=== PATIENT | male | born 1940 | race Hispanic/Latino ===

== ENCOUNTER 2017-04-19 13:32 | Inpatient (IN) | payer MEDICARE ==
--- NOTE | 2017-04-19 14:10 | XRay Report ---
Single view chest: History: Difficulty breathing. Findings: Borderline cardiomegaly. Trachea is midline. Mild pulmonary venous congestion is suspected faint interstitial infiltrates. Normal CP angles. Impression: Probable early CHF.
[2017-04-19 14:15] LABS: Hematocrit 24.8 % (35.5-45.6); Hemoglobin 8.3 gm/dl (11.8-15.2); Mean Corpuscular HGB Conc 33 % (32-34); Mean Corpuscular Hemoglobin 33 pg (28-32); Mean Corpuscular Volume 100 fl (84-94); Red Blood Count 2.48 M/mm3 (3.65-5.03); Red Cell Distribution Width 15.8 % (13.2-15.2)
[2017-04-19 14:18] LABS: White Blood Count 23.2 K/mm3 (4.5-11.0)
[2017-04-19 14:25] LABS: INR 1.56 (0.87-1.13)
[2017-04-19 14:26] LABS: Partial Thromboplastin Time 36.5 Sec. (24.2-36.6)
--- NOTE | 2017-04-19 14:26 | Cat Scan Report ---
CT scan of head without IV contrast: History: Stroke. Findings: Ventricles are normal in size and midline in location. Chronic lacunar infarct right and left basal ganglia. No evidence of acute ischemia, hemorrhage or mass. No extra-axial fluid collection. Normal brainstem and cerebellum. Mucosal thickening in the right maxillary sinus. Impression: No acute intracranial abnormality. Sinus disease.
[2017-04-19 14:37] LABS: Creatine Kinase MB 16.4 ng/mL (0.0-4.0)
[2017-04-19 14:38] LABS: Albumin 3.1 g/dL (3.9-5); Albumin/Globulin Ratio 0.9 %; Bilirubin,Direct 0.4 mg/dL (0-0.2); Bilirubin,Indirect 0.4 mg/dL; Bilirubin,Total 0.8 mg/dL (0.1-1.2); Calcium 7.6 mg/dL (8.4-10.2); Chloride 100.6 mmol/L (98-107); Potassium 4.3 mmol/L (3.6-5.0); Total Protein 6.4 g/dL (6.3-8.2)
[2017-04-19 14:51] LABS: Basophils % (Manual) 0 % (0.0-1.8)
[2017-04-19 14:53] LABS: Anisocytosis 1+; Elliptocytes Few; Microcytosis Few; Ovalocytes 1+; Tear Drop Cells Few
[2017-04-19 14:54] LABS: Burr Cells Few; Diff Status Complete; Platelet Estimate Appears Decreased; Polychromasia Rare
[2017-04-19 14:55] LABS: Platelet Count 23 K/mm3 (140-440)
--- NOTE | 2017-04-19 14:57 | XRay Report ---
Pelvis single view: History: Pelvic pain. Findings: No lytic or blastic lesions are noted. No fracture. No soft tissue calcification. Impression: Essentially negative pelvis.
--- NOTE | 2017-04-19 16:50 | Emergency Department Report ---
ED General Adult HPI - General Chief complaint: Altered Mental Status Stated complaint: POSSIBLE CVA Time Seen by Provider: 04/19/17 13:40 Source: EMS Mode of arrival: Stretcher Limitations: No Limitations - History of Present Illness Initial comments: The patient was transferred to this facility via EMS as a possible stroke syndrome. However the medics stated that his [place] score was negative and they had no recent to presume that the patient had a stroke. Apparently the patient passed out in his residence. The family found him in some degree of distress and called EMS. On the patient's arrival he did not complain of headache or pain anywhere else. He was noted to be a bit tachypnea. He did not complain of focal weakness or numbness. He had no specific neurological symptoms. He could tell me that he has been feeling weak in general and that he passed out in the early a.m. hours. I think he was found by his family in an altered condition. However he was oriented and lucid on his arrival. Medics reported a normal sugar and pulse oximetry was in the high 90s although they stated they found the patient on supplemental oxygen applied by fire department. -: This morning Severity scale (0 -10): 0 Improves with: none Worsens with: none Associated Symptoms: denies other symptoms - Related Data Home Medications Medication Instructions Recorded Confirmed Last Taken Simvastatin 20 mg PO DAILY 11/20/13 12/11/13 Unknown Previous Rx's Medication Instructions Recorded Last Taken Type Aspirin EC [Aspirin Enteric Coated 81 mg PO QDAY #30 tablet 12/09/13 Unknown Rx TAB] Clopidogrel [Plavix] 75 mg PO QDAY #30 tablet 12/09/13 Unknown Rx Lansoprazole Solutab [Prevacid 30 mg PO QDAY #30 tab 12/09/13 Unknown Rx Solutab] amLODIPine [Norvasc] 5 mg PO DAILY #30 tab 12/09/13 Unknown Rx glipiZIDE [glipiZIDE XL] 2.5 mg PO DAILY #30 tab.er.24 12/09/13 Unknown Rx Acetaminophen [Acetaminophen TAB] 650 mg PO Q4H PRN #30 tablet 12/20/13 Unknown Rx Albuterol *Only Ed* [Proventil 2.5 mg IH TIDRT 14 Days nebu 12/20/13 Unknown Rx 0.5% NEBS] Aspirin [Aspirin BABY CHEW TAB] 81 mg PO QDAY #30 tab.chew 12/20/13 Unknown Rx Azithromycin [Zithromax TAB] 500 mg PO QDAY #1 tablet 12/20/13 Unknown Rx Bisacodyl [Dulcolax suppos] 10 mg NJ QDAY PRN 30 Days 12/20/13 Unknown Rx supp.rect Dextrose 50% in Water [D50W (25GM) 50 ml IV PRN PRN 30 Days syringe 12/20/13 Unknown Rx Syringe] Docusate Sodium [Colace ORAL LIQ] 100 mg FEEDTUBE BID #60 oral.liqd 12/20/13 Unknown Rx Enoxaparin [Lovenox] 30 mg SUB-Q QDAY #14 syringe 12/20/13 Unknown Rx Haloperidol [Haldol] 0.5 mg PO Q6H PRN #30 tablet 12/20/13 Unknown Rx Lipase/Protease/Amylase [Pancreaze 1 each FEEDTUBE PRN PRN #30 capsule 12/20/[address],500 Unit] Metoprolol [Lopressor TAB] 25 mg PO BID #60 tablet 12/20/13 Unknown Rx Simple Syrup 15 ml FEEDTUBE PRN PRN 7 Days udc 12/20/13 Unknown Rx Sodium Bicarbonate 325 mg FEEDTUBE PRN PRN #30 tablet 12/20/13 Unknown Rx Allergies Allergy/AdvReac Type Severity Reaction Status Date / Time No Known Allergies Allergy Verified 11/20/13 21:16 ED Review of Systems ROS: Stated complaint: POSSIBLE CVA Other details as noted in HPI Constitutional: weakness. denies: chills, fever Eyes: denies: eye pain, eye discharge, vision change ENT: denies: ear pain, throat pain Respiratory: other (patient appears to be tachypneic but not specifically complaining of shortness of breath.). denies: cough, wheezing Cardiovascular: syncope. denies: chest pain, palpitations Endocrine: no symptoms reported Gastrointestinal: denies: abdominal pain, nausea, diarrhea Genitourinary: denies: urgency, dysuria Musculoskeletal: other (denies injury states fell out of bed). 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 He has had no recurrence. This lady was admitted to the [facility] for pneumonia and apparently had a chest tube I presume for a pleural effusion or empyema in January. He has not seen a doctor suddenly after that illness. - Surgical History Past Surgical History?: Yes Additional Surgical History: Removed left kidney 1994 - Social History Smoking Status: Former Smoker Substance Use Type: None - Medications Home Medications: Home Medications Medication Instructions Recorded Confirmed Last Taken Type Simvastatin 20 mg PO DAILY 11/20/13 12/11/13 Unknown History Aspirin EC [Aspirin Enteric Coated 81 mg PO QDAY #30 tablet 12/09/13 12/11/13 Unknown Rx TAB] Clopidogrel [Plavix] 75 mg PO QDAY #30 tablet 12/09/13 12/11/13 Unknown Rx Lansoprazole Solutab [Prevacid 30 mg PO QDAY #30 tab 12/09/13 12/11/13 Unknown Rx Solutab] amLODIPine [Norvasc] 5 mg PO DAILY #30 tab 12/09/13 12/11/13 Unknown Rx glipiZIDE [glipiZIDE XL] 2.5 mg PO DAILY #30 tab.er.24 12/09/13 12/11/13 Unknown Rx Acetaminophen [Acetaminophen TAB] 650 mg PO Q4H PRN #30 tablet 12/20/13 Unknown Rx Albuterol *Only Ed* [Proventil 2.5 mg IH TIDRT 14 Days nebu 12/20/13 Unknown Rx 0.5% NEBS] Aspirin [Aspirin BABY CHEW TAB] 81 mg PO QDAY #30 tab.chew 12/20/13 Unknown Rx Azithromycin [Zithromax TAB] 500 mg PO QDAY #1 tablet 12/20/13 Unknown Rx Bisacodyl [Dulcolax suppos] 10 mg NJ QDAY PRN 30 Days 12/20/13 Unknown Rx supp.rect Dextrose 50% in Water [D50W (25GM) 50 ml IV PRN PRN 30 Days syringe 12/20/13 Unknown Rx Syringe] Docusate Sodium [Colace ORAL LIQ] 100 mg FEEDTUBE BID #60 oral.liqd 12/20/13 Unknown Rx Enoxaparin [Lovenox] 30 mg SUB-Q QDAY #14 syringe 12/20/13 Unknown Rx Haloperidol [Haldol] 0.5 mg PO Q6H PRN #30 tablet 12/20/13 Unknown Rx Lipase/Protease/Amylase [Pancreaze 1 each FEEDTUBE PRN PRN #30 capsule 12/20/[address],500 Unit] Metoprolol [Lopressor TAB] 25 mg PO BID #60 tablet 12/20/13 Unknown Rx Simple Syrup 15 ml FEEDTUBE PRN PRN 7 Days udc 12/20/13 Unknown Rx Sodium Bicarbonate 325 mg FEEDTUBE PRN PRN #30 tablet 12/20/13 Unknown Rx ED Physical Exam - General Limitations: No Limitations General appearance: alert, in no apparent distress, other - Head Head exam: Present: atraumatic, normocephalic - Eye Eye exam: Present: normal appearance, PERRL, EOMI. Absent: scleral icterus ( tachypnea) - ENT ENT exam: Present: normal exam, mucous membranes moist - Neck Neck exam: Present: normal inspection - Respiratory Respiratory exam: Present: normal lung sounds bilaterally. Absent: respiratory distress - Cardiovascular Cardiovascular Exam: Present: regular rate, normal rhythm. Absent: systolic murmur, diastolic murmur, rubs, gallop - GI/Abdominal GI/Abdominal exam: Present: soft, normal bowel sounds. Absent: distended, tenderness, guarding, rebound, rigid - Rectal Rectal exam: Present: deferred - Extremities Exam Extremities exam: Present: normal inspection - Back Exam Back exam: Present: normal inspection - Neurological Exam Neurological exam: Present: alert, oriented X3, CN II-XII intact. Absent: motor sensory deficit (no acute focal deficit) - Psychiatric Psychiatric exam: Present: normal affect, normal mood - Skin Skin exam: Present: warm, dry, intact, normal color. Absent: rash ED Course Vital Signs 04/19/17 04/19/17 13:37 13:50 Temperature 98.8 F Pulse Rate 63 60 Respiratory 22 24 Rate Blood Pressure 126/68 O2 Sat by Pulse 99 95 Oximetry - Reevaluation(s) Reevaluation #1: She remained with tachypnea. However his vital signs were otherwise stable. Oximetry remained over 98%. He was treated with empiric antibiotics. He was treated with a measured amount of IV fluid. I do believe he has a cardiomyopathy and maybe early CHF. I do not want to volume overload him. Sepsis was a consideration. However the patient's picture was not well correlating. He does not have a tachycardia or a fever. His blood pressure is well maintained. This thrombocytopenia is very disproportionate to his leukocytosis. And indeed his leukocytosis is a lymphocytosis. 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 His platelet count was dangerously low. We do not know how its trending. Therefore I have ordered a platelet pheresis. In addition this patient's lactic acid level is normal. I have not seen evidence of a source infection. The patient does have an extremely elevated d-dimer. However this is nonspecific. We will pursue the possibility of pulmonary embolism with a VQ scan. That has been ordered. I discussed the case with Dr. Reis a flight operations inspector. I have asked the lab to send a flow cytometry test. Dr. Maharaj the hospitalist is admitting this patient. 19:03 Reevaluation #2: Patient does appear to have some degree of CHF and cardiomyopathy. I'm going to give him some Lasix. I do not believe the patient is septic. 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 Further care per the hospitalist and consultants. Patient is admitted in stable condition.. 04/19/17 19:13 ED Medical Decision Making - Lab Data Result diagrams: 04/19/17 13:55 04/19/17 13:55 Laboratory Results - last 24 hr 04/19/17 04/19/17 04/19/17 13:39 13:55 13:55 WBC 23.2 H RBC 2.48 L Hgb 8.3 L Hct 24.8 L MCV 100 H MCH 33 H MCHC 33 RDW 15.8 H Plt Count 23 L Lymph % (Auto) [place] Lymph # [place] Add Manual Diff Complete Total Counted 100 Seg Neutrophils % [place] Seg Neuts % (Manual) 5.0 L Band Neutrophils % 2.0 Lymphocytes % (Manual) 74.0 H Reactive Lymphs % (Man) 2.0 Monocytes % (Manual) 0 Eosinophils % (Manual) 1.0 Basophils % (Manual) 0 Metamyelocytes % 0 Myelocytes % 1.0 Promyelocytes % 7.0 Blast Cells % 8.0 Nucleated RBC % 1.0 H Seg Neutrophils # Man 1.2 L Band Neutrophils # 0.5 Lymphocytes # (Manual) 17.2 H Abs React Lymphs (Man) 0.5 Monocytes # (Manual) 0.0 Eosinophils # (Manual) 0.2 Basophils # (Manual) 0.0 Metamyelocytes # 0.0 Myelocytes # 0.2 Promyelocytes # 1.6 Blast Cells # 0.6 WBC Morphology Not Reportable Hypersegmented Neuts Not Reportable Hyposegmented Neuts Not Reportable Hypogranular Neuts Not Reportable Smudge Cells Not Reportable Toxic Granulation Not Reportable Toxic Vacuolation Not Reportable Dohle Bodies Not Reportable Pelger-Huet Anomaly Not Reportable Ivan Rods Not Reportable Platelet Estimate Appears decreased Clumped Platelets Not Reportable Plt Clumps, EDTA Not Reportable Large Platelets Not Reportable Giant Platelets Not Reportable Platelet Satelliting Not Reportable Plt Morphology Comment Not Reportable RBC Morphology Not Reportable Dimorphic RBCs Not Reportable Polychromasia Rare Hypochromasia Not Reportable Poikilocytosis Not Reportable Anisocytosis 1+ Microcytosis Few Macrocytosis Not Reportable Spherocytes Not Reportable Pappenheimer Bodies Not Reportable Sickle Cells Not Reportable Target Cells Not Reportable Tear Drop Cells Few Ovalocytes 1+ Helmet Cells Not Reportable [place] Bodies Not Reportable [place] Rings Not Reportable [place] Cells Few Bite Cells Not Reportable Crenated Cell Not Reportable Elliptocytes Few Acanthocytes (Spur) Not Reportable Rouleaux Not Reportable Hemoglobin C Crystals Not Reportable Schistocytes Not Reportable Malaria parasites Not Reportable Farhan Bodies Not Reportable Hem Pathologist Commnt Sent to pathology PT 19.6 H INR 1.56 H APTT 36.5 Thrombin Time 19.8 H D-Dimer > 75771 H Sodium Potassium Chloride Carbon Dioxide Anion Gap BUN Creatinine Estimated GFR BUN/Creatinine Ratio Glucose POC Glucose 126 H Lactic Acid Calcium Total Bilirubin Direct Bilirubin Indirect Bilirubin AST ALT Alkaline Phosphatase Total Creatine Kinase CK-MB (CK-2) CK-MB (CK-2) Rel Index Troponin T NT-Pro-B Natriuret Pep Total Protein Albumin Albumin/Globulin Ratio Triglycerides Cholesterol LDL Cholesterol Direct HDL Cholesterol Cholesterol/HDL Ratio Blood Type Antibody Screen 04/19/17 04/19/17 04/19/17 13:55 13:55 13:55 WBC RBC Hgb Hct MCV MCH MCHC RDW Plt Count Lymph % (Auto) Lymph # Add Manual Diff Total Counted Seg Neutrophils % Seg Neuts % (Manual) Band Neutrophils % Lymphocytes % (Manual) Reactive Lymphs % (Man) Monocytes % (Manual) Eosinophils % (Manual) Basophils % (Manual) Metamyelocytes % Myelocytes % Promyelocytes % Blast Cells % Nucleated RBC % Seg Neutrophils # Man Band Neutrophils # Lymphocytes # (Manual) Abs React Lymphs (Man) Monocytes # (Manual) Eosinophils # (Manual) Basophils # (Manual) Metamyelocytes # Myelocytes # Promyelocytes # Blast Cells # WBC Morphology Hypersegmented Neuts Hyposegmented Neuts Hypogranular Neuts Smudge Cells Toxic Granulation Toxic Vacuolation Dohle Bodies Pelger-Huet Anomaly Ivan Rods Platelet Estimate Clumped Platelets Plt Clumps, EDTA Large Platelets Giant Platelets Platelet Satelliting Plt Morphology Comment RBC Morphology Dimorphic RBCs Polychromasia Hypochromasia Poikilocytosis Anisocytosis Microcytosis Macrocytosis Spherocytes Pappenheimer Bodies Sickle Cells Target Cells Tear Drop Cells Ovalocytes Helmet Cells [place] Bodies [place] Rings Raquel Cells Bite Cells Crenated Cell Elliptocytes Acanthocytes (Spur) Rouleaux Hemoglobin C Crystals Schistocytes Malaria parasites Farhan Bodies Hem Pathologist Commnt PT INR APTT Thrombin Time D-Dimer Sodium 138 Potassium 4.3 Chloride 100.6 Carbon Dioxide 19 L Anion Gap 23 BUN 31 H Creatinine 1.4 Estimated GFR 49 BUN/Creatinine Ratio 22 Glucose 128 H POC Glucose Lactic Acid Calcium 7.6 L Total Bilirubin 0.80 Direct Bilirubin 0.4 H Indirect Bilirubin 0.4 AST 88 H ALT 45 Alkaline Phosphatase 332 H Total Creatine Kinase 801 H CK-MB (CK-2) 16.4 H CK-MB (CK-2) Rel Index 2.0 Troponin T 0.149 H* NT-Pro-B Natriuret Pep 3931 H Total Protein 6.4 Albumin 3.1 L Albumin/Globulin Ratio 0.9 Triglycerides 143 Cholesterol 77 LDL Cholesterol Direct 36 L HDL Cholesterol 13 L Cholesterol/HDL Ratio 5.92 Blood Type A POSITIVE Antibody Screen Negative 04/19/17 14:39 WBC RBC Hgb Hct MCV MCH MCHC RDW Plt Count Lymph % (Auto) Lymph # Add Manual Diff Total Counted Seg Neutrophils % Seg Neuts % (Manual) Band Neutrophils % Lymphocytes % (Manual) Reactive Lymphs % (Man) Monocytes % (Manual) Eosinophils % (Manual) Basophils % (Manual) Metamyelocytes % Myelocytes % Promyelocytes % Blast Cells % Nucleated RBC % Seg Neutrophils # Man Band Neutrophils # Lymphocytes # (Manual) Abs React Lymphs (Man) Monocytes # (Manual) Eosinophils # (Manual) Basophils # (Manual) Metamyelocytes # Myelocytes # Promyelocytes # Blast Cells # WBC Morphology Hypersegmented Neuts Hyposegmented Neuts Hypogranular Neuts Smudge Cells Toxic Granulation Toxic Vacuolation Dohle Bodies Pelger-Huet Anomaly Ivan Rods Platelet Estimate Clumped Platelets Plt Clumps, EDTA Large Platelets Giant Platelets Platelet Satelliting Plt Morphology Comment RBC Morphology Dimorphic RBCs Polychromasia Hypochromasia Poikilocytosis Anisocytosis Microcytosis Macrocytosis Spherocytes Pappenheimer Bodies Sickle Cells Target Cells Tear Drop Cells Ovalocytes Helmet Cells [place] Bodies [place] Rings [place] Cells Bite Cells Crenated Cell Elliptocytes Acanthocytes (Spur) Rouleaux Hemoglobin C Crystals Schistocytes Malaria parasites Farhan Bodies Hem Pathologist Commnt PT INR APTT Thrombin Time D-Dimer Sodium Potassium Chloride Carbon Dioxide Anion Gap BUN Creatinine Estimated GFR BUN/Creatinine Ratio Glucose POC Glucose Lactic Acid 1.20 Calcium Total Bilirubin Direct Bilirubin Indirect Bilirubin AST ALT Alkaline Phosphatase Total Creatine Kinase CK-MB (CK-2) CK-MB (CK-2) Rel Index Troponin T NT-Pro-B Natriuret Pep Total Protein Albumin Albumin/Globulin Ratio Triglycerides Cholesterol LDL Cholesterol Direct HDL Cholesterol Cholesterol/HDL Ratio Blood Type Antibody Screen - EKG Data -: EKG Interpreted by Me EKG shows normal: sinus rhythm Rate: normal - EKG Data Interpretation: nonspecific ST-T wave [facility] EKG was interpreted there is a lot of motion artifact but no evidence of STEMI or acute ischemia 04/19/17 19:11 - Radiology Data interpreted by me: Cardiomegaly and perhaps early CHF. Critical Care Time: Yes Critical care time in (mins) excluding proc time.: 60 Critical care attestation.: If time is entered above; I have spent that time in minutes in the direct care of this critically ill patient, excluding procedure time. ED Disposition Clinical Impression: Lymphoproliferative disorder, Thrombocytopenia, Lymphocytosis, Elevated troponin, Elevated d-dimer Anemia Qualifiers: Anemia type: unspecified type Qualified Code(s): D64.9 - Anemia, unspecified CHF (congestive heart failure) Qualifiers: Congestive heart failure type: unspecified congestive heart failure type Congestive heart failure chronicity: acute Qualified Code(s): I50.9 - Heart failure, unspecified Cardiomyopathy Qualifiers: Cardiomyopathy type: unspecified Qualified Code(s): I42.9 - Cardiomyopathy, unspecified Neutropenia Qualifiers: Neutropenia type: unspecified Qualified Code(s): D70.9 - Neutropenia, unspecified Disposition: DC09 OP ADMIT IP TO THIS HOSP Is pt being admited?: Yes Does the pt Need Aspirin: No (contraindicated due to thrombocytopenia) Condition: Stable Referrals: KORINA RIVER MD [Primary Care Provider] - 3-5 Days
[2017-04-19] MEDS ORDERED: VANCOMYCIN PHARMACY TO DOSE IV SCH ×2 (17:00→23:00)
[2017-04-19 17:31] LABS: Bilirubin,Urine NEG (Negative); Blood,Urine LG (Negative); Ketones,Urine 20 mg/dL (Negative); Leukocyte Esterase,Urine NEG (Negative); Mucus,Urine FEW /HPF; Nitrite,Urine NEG (Negative); Protein,Urine <15 mg/dL mg/dL (Negative); Urobilinogen,Urine < 2.0 mg/dL (<2.0)
[2017-04-19] MEDS ORDERED: NACL 0.9% 1000 ML 1,000 ML IV ONE (17:43)
[2017-04-19] MEDS ORDERED: NACL 0.9% 500 ML 500 ML IV ONE (17:51)
[2017-04-19] MEDS ORDERED: ZOSYN/NS 4.5GM/100ML 4.5 GM/100 ML VIAL IV ONE (18:00)
[2017-04-19] MEDS ORDERED: LASIX IV ONE (19:13)
[2017-04-19] MEDS: VANCOMYCIN/NS 1 GM/250 ML 1 GM/250 ML BAG IV SCH (20:36)
--- NOTE | 2017-04-19 21:11 | Nuclear Medicine Report ---
FINAL REPORT EXAM: NM LUNG SCAN PERF/VENT HISTORY: dimer syncope TECHNIQUE: Patient inhaled 15 millicurie xenon 133 and images were obtained per protocol. Patient was injected with 5 millicurie technetium 99 M maa and images were performed. Chest x-ray performed same day. FINDINGS: Ventilation imaging is normal. Perfusion images demonstrate a possible fissure sign on the RPO image. Chest x-ray demonstrates pulmonary interstitial infiltrates with nodularity suggestive of mild interstitial edema. IMPRESSION: By the PIOPED criteria, low probability for pulmonary thromboembolus. Chest x-ray findings are suggestive of mild interstitial edema.
[2017-04-19] MEDS ORDERED: PERCOCET 5/325 PO PRN (21:43)
--- NOTE | 2017-04-19 22:31 | History and Physical Report ---
History of Present Illness Date of examination: 04/19/17 Date of admission: 04/19/17 19:24 Chief complaint: Cc Passed out this AM History of present illness: [place] 76 y/o Male brought in for apparent passing out in AM.Also confusion.No fever/chills.No chest pain.No Sob.Patient has multiple medical problems including Htn CAD T2dm and Gerd. No malignancies except renal cell carcinoma for which he had L Nephrectomy Past Medical History Hx Hypertension: Yes Hx CVA: Yes Hx Congestive Heart Failure: (CAD) Hx Diabetes: Yes Hx Renal Disease: Yes (HX OF CA KIDNEY; TAKEN OFF. PT HAS ONLY RT KIDNEY) Additional medical history: Family states the patient had a nephrectomy for renal cancer. He has had no recurrence. Was admitted to the [facility] for pneumonia and apparently had a chest tube presumably for a pleural effusion or empyema in January. He has not seen a doctor recently after that illness. -Surgical History Past Surgical History?: Yes Additional Surgical History: Removed left kidney 1994 Social History Smoking Status: Former Smoker Substance Use Type: None -Medications Home Medications: Home Medications Medication Instructions Recorded Confirmed Last Taken Type Simvastatin 20 mg PO DAILY 11/20/13 12/11/13 Unknown History Aspirin EC [Aspirin Enteric Coated 81 mg PO QDAY #30 tablet 12/09/13 12/11/13 Unknown Rx TAB] Clopidogrel [Plavix] 75 mg PO QDAY #30 tablet 12/09/13 12/11/13 Unknown Rx Lansoprazole Solutab [Prevacid 30 mg PO QDAY #30 tab 12/09/13 12/11/13 Unknown Rx Solutab] amLODIPine [Norvasc] 5 mg PO DAILY #30 tab 12/09/13 12/11/13 Unknown Rx glipiZIDE [glipiZIDE XL] 2.5 mg PO DAILY #30 tab.er.24 12/09/13 12/11/13 Unknown Rx Acetaminophen [Acetaminophen TAB] 650 mg PO Q4H PRN #30 tablet 12/20/13 Unknown Rx Albuterol *Only Ed* [Proventil 2.5 mg IH TIDRT 14 Days nebu 12/20/13 Unknown Rx 0.5% NEBS] Aspirin [Aspirin BABY CHEW TAB] 81 mg PO QDAY #30 tab.chew 12/20/13 Unknown Rx Azithromycin [Zithromax TAB] 500 mg PO QDAY #1 tablet 12/20/13 Unknown Rx Bisacodyl [Dulcolax suppos] 10 mg LA QDAY PRN 30 Days 12/20/13 Unknown Rx supp.rect Dextrose 50% in Water [D50W (25GM) 50 ml IV PRN PRN 30 Days syringe 12/20/13 Unknown Rx Syringe] Docusate Sodium [Colace ORAL LIQ] 100 mg FEEDTUBE BID #60 oral.liqd 12/20/13 Unknown Rx Enoxaparin [Lovenox] 30 mg SUB-Q QDAY #14 syringe 12/20/13 Unknown Rx Haloperidol [Haldol] 0.5 mg PO Q6H PRN #30 tablet 12/20/13 Unknown Rx Lipase/Protease/Amylase [Pancreaze 1 each FEEDTUBE PRN PRN #30 capsule 12/20/[address],500 Unit] Metoprolol [Lopressor TAB] 25 mg PO BID #60 tablet 12/20/13 Unknown Rx Simple Syrup 15 ml FEEDTUBE PRN PRN 7 Days udc 12/20/13 Unknown Rx Sodium Bicarbonate 325 mg FEEDTUBE PRN PRN #30 tablet 12/20/13 Unknown Rx Review of Systems Stated complaint: POSSIBLE CVA Other details as noted in HPI Constitutional: weakness. denies: chills, fever Eyes: denies: eye pain, eye discharge, vision change ENT: denies: ear pain, throat pain Respiratory: other (patient appears to be tachypneic but not specifically complaining of shortness of breath.). denies: cough, wheezing Cardiovascular: syncope. denies: chest pain, palpitations Endocrine: no symptoms reported Gastrointestinal: denies: abdominal pain, nausea, diarrhea Genitourinary: denies: urgency, dysuria Musculoskeletal: other (denies injury states fell out of bed). denies: back pain, joint swelling, arthralgia Skin: denies: rash, lesions Neurological: denies: headache, weakness, paresthesias Psychiatric: denies: anxiety, depression Hematological/Lymphatic: denies: easy bleeding, easy bruising Medications and Allergies Allergies Allergy/AdvReac Type Severity Reaction Status Date / Time No Known Allergies Allergy Verified 11/20/13 21:16 Home Medications Medication Instructions Recorded Confirmed Last Taken Type Simvastatin 20 mg PO DAILY 11/20/13 04/19/17 Unknown History Amlodipine Besylate [Norvasc] 10 mg PO DAILY 04/19/17 04/19/17 Unknown History Aspirin [Aspirin BABY CHEW TAB] 81 mg PO DAILY 04/19/17 04/19/17 Unknown History Carvedilol [Coreg] 6.25 mg PO BID 04/19/17 04/19/17 Unknown History Clopidogrel [Plavix] 75 mg PO DAILY 04/19/17 04/19/17 Unknown History Active Meds: Active Medications Vancomycin HCl (Vancomycin/Ns 1 Gm/250 Ml) 1 gm in 250 mls @ 125 mls/hr IV Q24H NELSON Last Admin: 04/19/17 20:36 Dose: 125 mls/hr Oxycodone/Acetaminophen (Percocet 5/325) 1 tab PO Q6H PRN PRN Reason: Pain, Moderate (4-6) Last Admin: 04/19/17 21:58 Dose: 1 tab Vancomycin HCl (Vancomycin Pharmacy To Dose) 1 each IV PKCONSULT NELSON PRN Reason: Protocol Exam - Constitutional Vitals: Temp Pulse Resp BP Pulse Ox 100.8 F H 66 22 108/51 94 04/19/17 21:06 04/19/17 21:06 04/19/17 21:58 04/19/17 21:06 04/19/17 21:06 General appearance: Present: no acute distress, well-nourished - EENT Eyes: Present: PERRL ENT: hearing intact, clear oral mucosa - Neck Neck: Present: supple, normal ROM - Respiratory Respiratory effort: normal Respiratory: bilateral: CTA - Cardiovascular Heart rate: 80 Rhythm: regular Heart Sounds: Present: S1 & S2. Absent: rub, click - Extremities Extremities: no ischemia, pulses intact, pulses symmetrical, No edema Peripheral Pulses: within normal limits - Abdominal General gastrointestinal: Present: soft, non-tender, non-distended, normal bowel sounds Male genitourinary: Present: normal - Rectal Rectal Exam: deferred - Integumentary Integumentary: Present: clear, warm, dry - Musculoskeletal Musculoskeletal: gait normal, strength equal bilaterally - Psychiatric Psychiatric: appropriate mood/affect, intact judgment & insight - Neurologic Neurologic: CNII-XII intact, moves all extremities - Allied Health Allied health notes reviewed: nursing, case management Results - Labs CBC & Chem 7: 04/19/17 13:55 04/19/17 13:55 Labs: Laboratory Last Values WBC 23.2 K/mm3 (4.5-11.0) H 04/19/17 13:55 RBC 2.48 M/mm3 (3.65-5.03) L 04/19/17 13:55 Hgb 8.3 gm/dl (11.8-15.2) L 04/19/17 13:55 Hct 24.8 % (35.5-45.6) L 04/19/17 13:55 MCV 100 fl (84-94) H 04/19/17 13:55 MCH 33 pg (28-32) H 04/19/17 13:55 MCHC 33 % (32-34) 04/19/17 13:55 RDW 15.8 % (13.2-15.2) H 04/19/17 13:55 Plt Count 23 K/mm3 (140-440) L 04/19/17 13:55 Lymph % (Auto) Supervisor [employer] 04/19/17 13:55 Lymph # Supervisor [employer] 04/19/17 13:55 Add Manual Diff Complete 04/19/17 13:55 Total Counted 100 04/19/17 13:55 Seg Neutrophils % Supervisor [employer] 04/19/17 13:55 Seg Neuts % (Manual) 5.0 % (40.0-70.0) L 04/19/17 13:55 Band Neutrophils % 2.0 % 04/19/17 13:55 Lymphocytes % (Manual) 74.0 % (13.4-35.0) H 04/19/17 13:55 Reactive Lymphs % (Man) 2.0 % 04/19/17 13:55 Monocytes % (Manual) 0 % (0.0-7.3) 04/19/17 13:55 Eosinophils % (Manual) 1.0 % (0.0-4.3) 04/19/17 13:55 Basophils % (Manual) 0 % (0.0-1.8) 04/19/17 13:55 Metamyelocytes % 0 % 04/19/17 13:55 Myelocytes % 1.0 % 04/19/17 13:55 Promyelocytes % 7.0 % 04/19/17 13:55 Blast Cells % 8.0 % 04/19/17 13:55 Nucleated RBC % 1.0 % (0.0-0.9) H 04/19/17 13:55 Seg Neutrophils # Man 1.2 K/mm3 (1.8-7.7) L 04/19/17 13:55 Band Neutrophils # 0.5 K/mm3 04/19/17 13:55 Lymphocytes # (Manual) 17.2 K/mm3 (1.2-5.4) H 04/19/17 13:55 Abs React Lymphs (Man) 0.5 K/mm3 04/19/17 13:55 Monocytes # (Manual) 0.0 K/mm3 (0.0-0.8) 04/19/17 13:55 Eosinophils # (Manual) 0.2 K/mm3 (0.0-0.4) 04/19/17 13:55 Basophils # (Manual) 0.0 K/mm3 (0.0-0.1) 04/19/17 13:55 Metamyelocytes # 0.0 K/mm3 04/19/17 13:55 Myelocytes # 0.2 K/mm3 04/19/17 13:55 Promyelocytes # 1.6 K/mm3 04/19/17 13:55 Blast Cells # 0.6 K/mm3 04/19/17 13:55 WBC Morphology Not Reportable 04/19/17 13:55 Hypersegmented Neuts Not Reportable 04/19/17 13:55 Hyposegmented Neuts Not Reportable 04/19/17 13:55 Hypogranular Neuts Not Reportable 04/19/17 13:55 Smudge Cells Not Reportable 04/19/17 13:55 Toxic Granulation Not Reportable 04/19/17 13:55 Toxic Vacuolation Not Reportable 04/19/17 13:55 Dohle Bodies Not Reportable 04/19/17 13:55 Pelger-Huet Anomaly Not Reportable 04/19/17 13:55 Ivan Rods Not Reportable 04/19/17 13:55 Platelet Estimate Appears decreased 04/19/17 13:55 Clumped Platelets Not Reportable 04/19/17 13:55 Plt Clumps, EDTA Not Reportable 04/19/17 13:55 Large Platelets Not Reportable 04/19/17 13:55 Giant Platelets Not Reportable 04/19/17 13:55 Platelet Satelliting Not Reportable 04/19/17 13:55 Plt Morphology Comment Not Reportable 04/19/17 13:55 RBC Morphology Not Reportable 04/19/17 13:55 Dimorphic RBCs Not Reportable 04/19/17 13:55 Polychromasia Rare 04/19/17 13:55 Hypochromasia Not Reportable 04/19/17 13:55 Poikilocytosis Not Reportable 04/19/17 13:55 Anisocytosis 1+ 04/19/17 13:55 Microcytosis Few 04/19/17 13:55 Macrocytosis Not Reportable 04/19/17 13:55 Spherocytes Not Reportable 04/19/17 13:55 Pappenheimer Bodies Not Reportable 04/19/17 13:55 Sickle Cells Not Reportable 04/19/17 13:55 Target Cells Not Reportable 04/19/17 13:55 Tear Drop Cells Few 04/19/17 13:55 Ovalocytes 1+ 04/19/17 13:55 Helmet Cells Not Reportable 04/19/17 13:55 Oquendo-Cobre Bodies Not Reportable 04/19/17 13:55 [place] Rings Not Reportable 04/19/17 13:55 Raquel Cells Few 04/19/17 13:55 Bite Cells Not Reportable 04/19/17 13:55 Crenated Cell Not Reportable 04/19/17 13:55 Elliptocytes Few 04/19/17 13:55 Acanthocytes (Spur) Not Reportable 04/19/17 13:55 Rouleaux Not Reportable 04/19/17 13:55 Hemoglobin C Crystals Not Reportable 04/19/17 13:55 Schistocytes Not Reportable 04/19/17 13:55 Malaria parasites Not Reportable 04/19/17 13:55 Farhan Bodies Not Reportable 04/19/17 13:55 Hem Pathologist Commnt Sent to pathology 04/19/17 13:55 PT 19.6 Sec. (12.2-14.9) H 04/19/17 13:55 INR 1.56 (0.87-1.13) H 04/19/17 13:55 APTT 36.5 Sec. (24.2-36.6) 04/19/17 13:55 Thrombin Time 19.8 Sec. (15.1-19.6) H 04/19/17 13:55 D-Dimer > 71391 ng/mlDDU (0-234) H 04/19/17 13:55 Sodium 138 mmol/L (137-145) 04/19/17 13:55 Potassium 4.3 mmol/L (3.6-5.0) 04/19/17 13:55 Chloride 100.6 mmol/L (98-107) 04/19/17 13:55 Carbon Dioxide 19 mmol/L (22-30) L 04/19/17 13:55 Anion Gap 23 mmol/L 04/19/17 13:55 BUN 31 mg/dL (9-20) H 04/19/17 13:55 Creatinine 1.4 mg/dL (0.8-1.5) 04/19/17 13:55 Estimated GFR 49 ml/min 04/19/17 13:55 BUN/Creatinine Ratio 22 % 04/19/17 13:55 Glucose 128 mg/dL (75-100) H 04/19/17 13:55 POC Glucose 126 (70-105) H 04/19/17 13:39 Lactic Acid 1.20 mmol/L (0.7-2.0) 04/19/17 14:39 Calcium 7.6 mg/dL (8.4-10.2) L 04/19/17 13:55 Total Bilirubin 0.80 mg/dL (0.1-1.2) 04/19/17 13:55 Direct Bilirubin 0.4 mg/dL (0-0.2) H 04/19/17 13:55 Indirect Bilirubin 0.4 mg/dL 04/19/17 13:55 AST 88 units/L (5-40) H 04/19/17 13:55 ALT 45 units/L (7-56) 04/19/17 13:55 Alkaline Phosphatase 332 units/L (35-129) H 04/19/17 13:55 Total Creatine Kinase 801 units/L (55-170) H 04/19/17 13:55 CK-MB (CK-2) 16.4 ng/mL (0.0-4.0) H 04/19/17 13:55 CK-MB (CK-2) Rel Index 2.0 (0-4) 04/19/17 13:55 Troponin T 0.149 ng/mL (0.00-0.029) H* 04/19/17 13:55 NT-Pro-B Natriuret Pep 3931 pg/mL (0-900) H 04/19/17 13:55 Total Protein 6.4 g/dL (6.3-8.2) 04/19/17 13:55 Albumin 3.1 g/dL (3.9-5) L 04/19/17 13:55 Albumin/Globulin Ratio 0.9 % 04/19/17 13:55 Triglycerides 143 mg/dL (2-149) 04/19/17 13:55 Cholesterol 77 mg/dL (50-199) 04/19/17 13:55 LDL Cholesterol Direct 36 mg/dL (50-130) L 04/19/17 13:55 HDL Cholesterol 13 mg/dL (40-59) L 04/19/17 13:55 Cholesterol/HDL Ratio 5.92 % 04/19/17 13:55 Urine Color Yellow (Yellow) 04/19/17 17:03 Urine Turbidity Clear (Clear) 04/19/17 17:03 Urine pH 5.0 (5.0-7.0) 04/19/17 17:03 Ur Specific [place] 1.018 (1.003-1.030) 04/19/17 17:03 Urine Protein <15 mg/dl mg/dL (Negative) 04/19/17 17:03 Urine Glucose (UA) Neg mg/dL (Negative) 04/19/17 17:03 Urine Ketones 20 mg/dL (Negative) 04/19/17 17:03 Urine Blood Lg (Negative) 04/19/17 17:03 Urine Nitrite Neg (Negative) 04/19/17 17:03 Urine Bilirubin Neg (Negative) 04/19/17 17:03 Urine Urobilinogen < 2.0 mg/dL (<2.0) 04/19/17 17:03 Ur Leukocyte Esterase Neg (Negative) 04/19/17 17:03 Urine WBC (Auto) 7.0 /HPF (0.0-6.0) H 04/19/17 17:03 Urine RBC (Auto) 76.0 /HPF (0.0-6.0) 04/19/17 17:03 U Epithel Cells (Auto) 1.0 /HPF (0-13.0) 04/19/17 17:03 Urine Mucus Few /HPF 04/19/17 17:03 Blood Type A POSITIVE 04/19/17 13:55 Antibody Screen Negative 04/19/17 13:55 - Imaging and Cardiology EKG: report reviewed Assessment and Plan Advance Directives: Yes (Full code) VTE prophylaxis?: Mechanical Plan of care discussed with patient/family: Yes - Patient Problems (1) Syncope and collapse Current Visit: Yes Status: Acute Plan to address problem: Syncope work up CDS and Lexiscan/Echo ordered (2) Lymphoproliferative disorder Current Visit: Yes Status: Acute Plan to address problem: Patient has Leukocytosis consisting of Lymphocytosis only. Possible CLL. Flow cytometry ordered Hem onc consult requested (3) Thrombocytopenia Current Visit: Yes Status: Acute Plan to address problem: Sec to CLL probablyWas ordered platelet pheresis in ER . No active bleeding.Will not transfuse platelets transfusion now. (4) Anemia Current Visit: Yes Status: Chronic Qualifiers: Anemia type: unspecified type Qualified Code(s): D64.9 - Anemia, unspecified Plan to address problem: Check Iron/B12/folic acid levels (5) HLD (hyperlipidemia) Current Visit: Yes Status: Chronic Qualifiers: Hyperlipidemia type: mixed hyperlipidemia Qualified Code(s): E78.2 - Mixed hyperlipidemia Plan to address problem: Cont statins (6) CAD (coronary artery disease) Current Visit: Yes Status: Chronic Qualifiers: Coronary Disease-Associated Artery/Lesion type: [place] artery Associated angina: without angina Plan to address problem: Hold plavix given Thrombocytopenia (7) T2DM (type 2 diabetes mellitus) Current Visit: Yes Status: Chronic Qualifiers: Diabetes mellitus complication status: without complication Diabetes mellitus termite inspector insulin use: without termite inspector use Qualified Code(s): E11.9 - Type 2 diabetes mellitus without complications Plan to address problem: Coverage for now (8) HTN (hypertension) Current Visit: Yes Status: Chronic Qualifiers: Hypertension type: essential hypertension Qualified Code(s): I10 - Essential (primary) hypertension Plan to address problem: Cont antihypertensives (9) DVT prophylaxis Current Visit: No Status: Acute Plan to address problem: Only SCD's given thrombocytopenia
[2017-04-19] MEDS ORDERED: NACL 0.9% 1000 ML 1,000 ML IV SCH (23:00)
[2017-04-20] MEDS: ZOSYN/NS 3.375GM/50ML 3.375 GM/50 ML BAG IV SCH ×2 (02:24→13:02)
[2017-04-20] MEDS ORDERED: BABY ASPIRIN PO SCH (10:00)
[2017-04-20] MEDS ORDERED: NON-FORMULARY (Simvastatin [Simvastatin] 20 MG) PO SCH (10:00)
[2017-04-20] MEDS ORDERED: PLAVIX PO SCH (10:00)
[2017-04-20] MEDS: NOVOLOG SUB-Q SCH ×3 (12:00→22:57)
[2017-04-20 12:40] LABS: Hematocrit 25.1 % (35.5-45.6); Mean Corpuscular HGB Conc 32 % (32-34); Mean Corpuscular Hemoglobin 32 pg (28-32); Mean Corpuscular Volume 100 fl (84-94); Red Blood Count 2.51 M/mm3 (3.65-5.03); Red Cell Distribution Width 16.5 % (13.2-15.2)
[2017-04-20 12:42] LABS: Platelet Count 54 K/mm3 (140-440); White Blood Count 47.9 K/mm3 (4.5-11.0)
[2017-04-20] MEDS ORDERED: NACL 0.9% 1000 ML 1,000 ML IV SCH (13:00)
[2017-04-20] MEDS: NORVASC PO SCH (13:03)
[2017-04-20] MEDS: COREG PO SCH (13:04)
[2017-04-20 13:30] LABS: Anisocytosis 1+; Basophils % (Manual) 0 % (0.0-1.8); Eosinophils % (Manual) 0 % (0.0-4.3); Helmet Cells Few; Total Cells Counted Percent 0
[2017-04-20 13:31] LABS: Burr Cells Rare; Elliptocytes Few; Ovalocytes 2+
[2017-04-20 13:32] LABS: Diff Status Complete; Platelet Estimate Appears Decreased
[2017-04-20] MEDS: VANCOMYCIN/NS 1 GM/250 ML 1 GM/250 ML BAG IV SCH (18:03)
[2017-04-20 18:14] LABS: ISTAT Base Excess -5; ISTAT HCO3 21.8; ISTAT PH 7.294 (7.35-7.45); ISTAT PO2 85 (80-105); ISTAT SO2 95; ISTAT TCO2 23
--- NOTE | 2017-04-20 18:16 | Progress Note ---
Assessment and Plan Assessment and plan: --Syncope/autonomic imbalance; fall precautions, workup is in progress --Metabolic encephalopathy; neurochecks, supportive care, CT head negative --Leukocytosis; lymphoproliferative disorder, possible leukemia, hematology consulted, workup is in progress, Dr. Reis has evaluated the patient --Acute respiratory distress; chest x-ray early CHF, VQ scan negative for PE, oxygen titrate O2 sats more than 90%, BiPAP as needed IV antibiotics, IV diuretics --Shortness of breath/early CHF, follow echocardiogram, cardiology evaluation is needed --Mild elevation of troponins, continue current management, stress test tomorrow --Thrombocytopenia; no evidence of bleeding Received 1 unit of platelets, hematology following --Anemia; closely monitor transfuse as needed --DVT prophylaxis with SCDs No pharmacologic anticoagulation in view of thrombocytopenia --Full CODE STATUS Patient looks ill with poor prognosis History Interval history: Patient seen and examined medical records reviewed Patient's sister is at the bedside Admitted with acute respiratory distress, chest pain, and possible leukemia Patient complains of shortness of breath, in mild distress VQ scan low probability for PE Schedule for stress test unable to do because of VQ Possible stress test tomorrow Hospitalist Physical - Constitutional Vitals: Temp Pulse Resp BP Pulse Ox 98.4 F 69 21 102/53 95 04/20/17 05:37 04/20/17 13:04 04/20/17 17:41 04/20/17 13:04 04/20/17 17:41 General appearance: Present: mild distress, cachectic, other (response to simple questions) - EENT Eyes: Present: PERRL - Neck Neck: Present: supple, normal ROM - Respiratory Respiratory effort: labored (mild distress) Respiratory: bilateral: diminished, rhonchi, negative: rales, wheezing - Cardiovascular Rhythm: regular Heart Sounds: Present: S1 & S2 - Extremities Extremities: no ischemia, No edema - Abdominal General gastrointestinal: soft, non-tender, non-distended, normal bowel sounds - Integumentary Integumentary: Present: clear, warm - Psychiatric Psychiatric: appropriate mood/affect, other (confused at times) - Neurologic Neurologic: moves all extremities Results - Labs CBC & Chem 7: 04/20/17 11:59 04/19/17 13:55 Labs: Laboratory Last Values WBC 47.9 K/mm3 (4.5-11.0) H* 04/20/17 11:59 RBC 2.51 M/mm3 (3.65-5.03) L 04/20/17 11:59 Hgb 8.0 gm/dl (11.8-15.2) L 04/20/17 11:59 Hct 25.1 % (35.5-45.6) L 04/20/17 11:59 MCV 100 fl (84-94) H 04/20/17 11:59 MCH 32 pg (28-32) 04/20/17 11:59 MCHC 32 % (32-34) 04/20/17 11:59 RDW 16.5 % (13.2-15.2) H 04/20/17 11:59 Plt Count 54 K/mm3 (140-440) L D 04/20/17 11:59 Lymph % (Auto) Commercial Loan Analyst 04/20/17 11:59 Lymph # Commercial Loan Analyst 04/20/17 11:59 Add Manual Diff Complete 04/20/17 11:59 Total Counted 100 04/20/17 11:59 Seg Neutrophils % Commercial Loan Analyst 04/20/17 11:59 Seg Neuts % (Manual) 1.0 % (40.0-70.0) L 04/20/17 11:59 Band Neutrophils % 3.0 % 04/20/17 11:59 Lymphocytes % (Manual) 89.0 % (13.4-35.0) H 04/20/17 11:59 Reactive Lymphs % (Man) 0 % 04/20/17 11:59 Monocytes % (Manual) 0 % (0.0-7.3) 04/20/17 11:59 Eosinophils % (Manual) 0 % (0.0-4.3) 04/20/17 11:59 Basophils % (Manual) 0 % (0.0-1.8) 04/20/17 11:59 Metamyelocytes % 0 % 04/20/17 11:59 Myelocytes % 0 % 04/20/17 11:59 Promyelocytes % 0 % 04/20/17 11:59 Blast Cells % 7.0 % 04/20/17 11:59 Nucleated RBC % Not Reportable 04/20/17 11:59 Seg Neutrophils # Man 0.5 K/mm3 (1.8-7.7) L 04/20/17 11:59 Band Neutrophils # 1.4 K/mm3 04/20/17 11:59 Lymphocytes # (Manual) 42.6 K/mm3 (1.2-5.4) H 04/20/17 11:59 Abs React Lymphs (Man) 0.0 K/mm3 04/20/17 11:59 Monocytes # (Manual) 0.0 K/mm3 (0.0-0.8) 04/20/17 11:59 Eosinophils # (Manual) 0.0 K/mm3 (0.0-0.4) 04/20/17 11:59 Basophils # (Manual) 0.0 K/mm3 (0.0-0.1) 04/20/17 11:59 Metamyelocytes # 0.0 K/mm3 04/20/17 11:59 Myelocytes # 0.0 K/mm3 04/20/17 11:59 Promyelocytes # 0.0 K/mm3 04/20/17 11:59 Blast Cells # 0.3 K/mm3 04/20/17 11:59 Pathologist Review 04/19/17 13:55 WBC Morphology Not Reportable 04/20/17 11:59 Hypersegmented Neuts Not Reportable 04/20/17 11:59 Hyposegmented Neuts Not Reportable 04/20/17 11:59 Hypogranular Neuts Not Reportable 04/20/17 11:59 Smudge Cells Not Reportable 04/20/17 11:59 Toxic Granulation Not Reportable 04/20/17 11:59 Toxic Vacuolation Not Reportable 04/20/17 11:59 Dohle Bodies Not Reportable 04/20/17 11:59 Pelger-Huet Anomaly Not Reportable 04/20/17 11:59 Ivan Rods Not Reportable 04/20/17 11:59 Platelet Estimate Appears decreased 04/20/17 11:59 Clumped Platelets Not Reportable 04/20/17 11:59 Plt Clumps, EDTA Not Reportable 04/20/17 11:59 Large Platelets Not Reportable 04/20/17 11:59 Giant Platelets Not Reportable 04/20/17 11:59 Platelet Satelliting Not Reportable 04/20/17 11:59 Plt Morphology Comment Not Reportable 04/20/17 11:59 RBC Morphology Not Reportable 04/20/17 11:59 Dimorphic RBCs Not Reportable 04/20/17 11:59 Polychromasia Not Reportable 04/20/17 11:59 Hypochromasia Not Reportable 04/20/17 11:59 Poikilocytosis Not Reportable 04/20/17 11:59 Anisocytosis 1+ 04/20/17 11:59 Microcytosis Not Reportable 04/20/17 11:59 Macrocytosis Not Reportable 04/20/17 11:59 Spherocytes Not Reportable 04/20/17 11:59 Pappenheimer Bodies Not Reportable 04/20/17 11:59 Sickle Cells Not Reportable 04/20/17 11:59 Target Cells Not Reportable 04/20/17 11:59 Tear Drop Cells Not Reportable 04/20/17 11:59 Ovalocytes 2+ 04/20/17 11:59 Helmet Cells Few 04/20/17 11:59 Oquendo-Stronach Bodies Not Reportable 04/20/17 11:59 [place] Rings Not Reportable 04/20/17 11:59 Raquel Cells Rare 04/20/17 11:59 Bite Cells Rare 04/20/17 11:59 Crenated Cell Not Reportable 04/20/17 11:59 Elliptocytes Few 04/20/17 11:59 Acanthocytes (Spur) Not Reportable 04/20/17 11:59 Rouleaux Not Reportable 04/20/17 11:59 Hemoglobin C Crystals Not Reportable 04/20/17 11:59 Schistocytes Not Reportable 04/20/17 11:59 Malaria parasites Not Reportable 04/20/17 11:59 Farhan Bodies Not Reportable 04/20/17 11:59 Hem Pathologist Commnt No 04/20/17 11:59 PT 19.6 Sec. (12.2-14.9) H 04/19/17 13:55 INR 1.56 (0.87-1.13) H 04/19/17 13:55 APTT 36.5 Sec. (24.2-36.6) 04/19/17 13:55 Thrombin Time 19.8 Sec. (15.1-19.6) H 04/19/17 13:55 D-Dimer > 54586 ng/mlDDU (0-234) H 04/19/17 13:55 POC ABG pH 7.294 (7.35-7.45) L 04/20/17 18:13 POC ABG pCO2 45.0 (35-45) 04/20/17 18:13 POC ABG pO2 85 (80-105) 04/20/17 18:13 POC ABG HCO3 21.8 04/20/17 18:13 POC ABG Total CO2 23 04/20/17 18:13 POC ABG O2 Sat 95 04/20/17 18:13 POC ABG Base Excess -5 04/20/17 18:13 FiO2 60 % 04/20/17 18:13 Sodium 138 mmol/L (137-145) 04/19/17 13:55 Potassium 4.3 mmol/L (3.6-5.0) 04/19/17 13:55 Chloride 100.6 mmol/L (98-107) 04/19/17 13:55 Carbon Dioxide 19 mmol/L (22-30) L 04/19/17 13:55 Anion Gap 23 mmol/L 04/19/17 13:55 BUN 31 mg/dL (9-20) H 04/19/17 13:55 Creatinine 1.4 mg/dL (0.8-1.5) 04/19/17 13:55 Estimated GFR 49 ml/min 04/19/17 13:55 BUN/Creatinine Ratio 22 % 04/19/17 13:55 Glucose 128 mg/dL (75-100) H 04/19/17 13:55 POC Glucose 140 (70-105) H 04/20/17 08:54 Lactic Acid 1.20 mmol/L (0.7-2.0) 04/19/17 14:39 Calcium 7.6 mg/dL (8.4-10.2) L 04/19/17 13:55 Total Bilirubin 0.80 mg/dL (0.1-1.2) 04/19/17 13:55 Direct Bilirubin 0.4 mg/dL (0-0.2) H 04/19/17 13:55 Indirect Bilirubin 0.4 mg/dL 04/19/17 13:55 AST 88 units/L (5-40) H 04/19/17 13:55 ALT 45 units/L (7-56) 04/19/17 13:55 Alkaline Phosphatase 332 units/L (35-129) H 04/19/17 13:55 Total Creatine Kinase 801 units/L (55-170) H 04/19/17 13:55 CK-MB (CK-2) 16.4 ng/mL (0.0-4.0) H 04/19/17 13:55 CK-MB (CK-2) Rel Index 2.0 (0-4) 04/19/17 13:55 Troponin T 0.149 ng/mL (0.00-0.029) H* 04/19/17 13:55 NT-Pro-B Natriuret Pep 3931 pg/mL (0-900) H 04/19/17 13:55 Total Protein 6.4 g/dL (6.3-8.2) 04/19/17 13:55 Albumin 3.1 g/dL (3.9-5) L 04/19/17 13:55 Albumin/Globulin Ratio 0.9 % 04/19/17 13:55 Triglycerides 143 mg/dL (2-149) 04/19/17 13:55 Cholesterol 77 mg/dL (50-199) 04/19/17 13:55 LDL Cholesterol Direct 36 mg/dL (50-130) L 04/19/17 13:55 HDL Cholesterol 13 mg/dL (40-59) L 04/19/17 13:55 Cholesterol/HDL Ratio 5.92 % 04/19/17 13:55 Urine Color Yellow (Yellow) 04/19/17 17:03 Urine Turbidity Clear (Clear) 04/19/17 17:03 Urine pH 5.0 (5.0-7.0) 04/19/17 17:03 Ur Specific [place] 1.018 (1.003-1.030) 04/19/17 17:03 Urine Protein <15 mg/dl mg/dL (Negative) 04/19/17 17:03 Urine Glucose (UA) Neg mg/dL (Negative) 04/19/17 17:03 Urine Ketones 20 mg/dL (Negative) 04/19/17 17:03 Urine Blood Lg (Negative) 04/19/17 17:03 Urine Nitrite Neg (Negative) 04/19/17 17:03 Urine Bilirubin Neg (Negative) 04/19/17 17:03 Urine Urobilinogen < 2.0 mg/dL (<2.0) 04/19/17 17:03 Ur Leukocyte Esterase Neg (Negative) 04/19/17 17:03 Urine WBC (Auto) 7.0 /HPF (0.0-6.0) H 04/19/17 17:03 Urine RBC (Auto) 76.0 /HPF (0.0-6.0) 04/19/17 17:03 U Epithel Cells (Auto) 1.0 /HPF (0-13.0) 04/19/17 17:03 Urine Mucus Few /HPF 04/19/17 17:03 Blood Type A POSITIVE 04/19/17 13:55 Antibody Screen Negative 04/19/17 13:55
[2017-04-20] MEDS ORDERED: PRAVACHOL PO SCH (22:00)
[2017-04-21] MEDS: COREG PO SCH ×2 (00:22→10:00)
[2017-04-21] MEDS: ZOSYN/NS 3.375GM/50ML 3.375 GM/50 ML BAG IV SCH ×2 (01:03)
--- NOTE | 2017-04-21 02:07 | Consultation ---
REFERRING PHYSICIAN: Dr. Cora Smith. REASON FOR CONSULTATION: Leukocytosis, thrombocytopenia. HISTORY OF PRESENT ILLNESS: The patient is a 76-year-old male, who was admitted to the hospital with evidence of weakness. Sister states that he had gotten so weak in the last week and in fact was found on the floor for several hours. He was brought to the emergency room here yesterday and he was found to have a white count of 23.2, hemoglobin 8.3, platelets 23,000. His peripheral smear had shown increased large cells, which seem to be immature, looking possible blasts. The patient was admitted to the hospital for observation. He also has according to the sister started to have hyperventilation. The patient back in January was admitted at [facility] for left-sided pneumonia with chest tube placement, which was subsequently removed. In 2013, he had severe CVA and was admitted here for that. In 1996, he had nephrectomy for renal cell carcinoma. Never received any treatment for that he states. PAST MEDICAL HISTORY: As mentioned in history of present illness. REVIEW OF SYSTEMS: Positive for weakness which has been going on for about a month or so according to the sister. He has gotten worse in the last week. Prior to that, he was driving himself and cooking for himself. He did have a left-sided weakness. SOCIAL HISTORY: Does not smoke or drink. PHYSICAL EXAMINATION: GENERAL: The patient seems to be having some hyperventilation, is mumbling, but does seem to be understanding what I am saying. HEENT: Remarkable for pallor. CHEST: Decreased breath sounds in left lung. CARDIOVASCULAR: Regular, rate and rhythm. ABDOMEN: Soft. EXTREMITIES: No clubbing, cyanosis, or edema. LABORATORY DATA: As mentioned in history of present illness. ASSESSMENT: 1. Leukocytosis. The peripheral smear is very suggestive of immature cells, possibly blasts. 2. Thrombocytopenia and anemia. 3. coagulopathy-? sec to leukemia. no active obvious bleeding PLAN: At this time, we will go ahead and send peripheral blood for flow cytometry. If there is leukemia, we would be concerned about him ____ possibly transferring him to a facility where acute leukemia would be treated, possibly [facility] or [place]. yasmeen pt/ptt and may need ffp if needed plt tx We will follow. JOB# [id number] JOHNSON/RODDY TAVERA
[2017-04-21 06:22] LABS: Hematocrit 23.7 % (35.5-45.6); Hemoglobin 7.4 gm/dl (11.8-15.2); Mean Corpuscular HGB Conc 31 % (32-34); Mean Corpuscular Hemoglobin 32 pg (28-32); Mean Corpuscular Volume 103 fl (84-94); Red Cell Distribution Width 17.5 % (13.2-15.2)
[2017-04-21 06:26] LABS: INR 1.79 (0.87-1.13); Platelet Count 17 K/mm3 (140-440); White Blood Count 68.7 K/mm3 (4.5-11.0)
[2017-04-21 06:27] LABS: Partial Thromboplastin Time 42.2 Sec. (24.2-36.6)
[2017-04-21 06:44] LABS: Calcium 7.3 mg/dL (8.4-10.2); Chloride 107.6 mmol/L (98-107); Magnesium 2.8 mg/dL (1.7-2.3)
[2017-04-21 07:00] LABS: Potassium 6.2 mmol/L (3.6-5.0)
[2017-04-21 07:02] LABS: Hematocrit 23.1 % (35.5-45.6); Hemoglobin 7.4 gm/dl (11.8-15.2); Mean Corpuscular HGB Conc 32 % (32-34); Mean Corpuscular Hemoglobin 33 pg (28-32); Mean Corpuscular Volume 102 fl (84-94); Red Blood Count 2.26 M/mm3 (3.65-5.03); Red Cell Distribution Width 17.4 % (13.2-15.2)
[2017-04-21 07:05] LABS: Platelet Count 17 K/mm3 (140-440); White Blood Count 72.3 K/mm3 (4.5-11.0)
[2017-04-21 07:25] LABS: Basophils % (Manual) 0 % (0.0-1.8); Eosinophils % (Manual) 0 % (0.0-4.3)
[2017-04-21 07:26] LABS: Anisocytosis 1+; Diff Status Complete; Platelet Estimate Consistent w Auto; Schistocytes Rare
[2017-04-21] MEDS: NOVOLOG SUB-Q SCH ×3 (08:30→16:30)
[2017-04-21] MEDS ORDERED: NACL 0.9% 500 ML 500 ML IV ONE (08:58)
--- NOTE | 2017-04-21 09:08 | Hem/Onc Progress Note ---
Assessment and Plan Patient's counts have deteriorated significantly. His white count is > 70,000. Peripheral smear shows abnormal immature cells highly likely to be blasts. Platelets have dropped to 17,000. Patient has now renal insufficiency. I have discussed at length with the patient's 2 sisters on the phone. They understand the gravity of the situation and do not want him to be put on machines for resussitation. I have also explained to them that we will have to have paperwork signed for that. Next I am awaiting flow cytometry but at this point the clinical situation and the rapidity of the deterioration points towards acute leukemia. Patient is not a candidate for any sort of chemotherapy. I will give him blood and platelets but at this point I feel that he should be a DO NOT RESUSCITATE and we should highly consider hospice. Patient's sisters agree and they will let his children know about the situation. I have discussed with the nurse will also get risk management involved. Subjective Date of service: 04/21/17 Interval history: events noted. not responding to verbal commands. Overall significant deterioration in mental status and overall status. Objective - Exam Narrative Exam: Unresponsive - Constitutional Vitals: Last Vital Signs Temp 99.0 F 04/21/17 04:53 Pulse 53 L 04/21/17 00:30 Resp 18 04/21/17 04:53 BP 82/39 04/21/17 04:53 Pulse Ox 93 04/21/17 04:30 Performance status: 4-completely disabled - Respiratory Respiratory effort: Positive: labored Respiratory: bilateral: other (on BiPAP) - Gastrointestinal General gastrointestinal: Present: soft - Labs Lab Results: Laboratory Results - last 24 hr 04/19/17 04/19/17 04/20/17 13:55 13:55 11:59 WBC 47.9 H* RBC 2.51 L Hgb 8.0 L Hct 25.1 L MCV 100 H MCH 32 MCHC 32 RDW 16.5 H Plt Count 54 L D Lymph % (Auto) Fan Installer Lymph # Fan Installer Add Manual Diff Complete Total Counted 100 Seg Neutrophils % Fan Installer Seg Neuts % (Manual) 1.0 L Band Neutrophils % 3.0 Lymphocytes % (Manual) 89.0 H Reactive Lymphs % (Man) 0 Monocytes % (Manual) 0 Eosinophils % (Manual) 0 Basophils % (Manual) 0 Metamyelocytes % 0 Myelocytes % 0 Promyelocytes % 0 Blast Cells % 7.0 Nucleated RBC % Not Reportable Seg Neutrophils # Man 0.5 L Band Neutrophils # 1.4 Lymphocytes # (Manual) 42.6 H Abs React Lymphs (Man) 0.0 Monocytes # (Manual) 0.0 Eosinophils # (Manual) 0.0 Basophils # (Manual) 0.0 Metamyelocytes # 0.0 Myelocytes # 0.0 Promyelocytes # 0.0 Blast Cells # 0.3 Pathologist Review WBC Morphology Not Reportable Hypersegmented Neuts Not Reportable Hyposegmented Neuts Not Reportable Hypogranular Neuts Not Reportable Smudge Cells Not Reportable Toxic Granulation Not Reportable Toxic Vacuolation Not Reportable Dohle Bodies Not Reportable Pelger-Huet Anomaly Not Reportable Ivan Rods Not Reportable Platelet Estimate Appears decreased Clumped Platelets Not Reportable Plt Clumps, EDTA Not Reportable Large Platelets Not Reportable Giant Platelets Not Reportable Platelet Satelliting Not Reportable Plt Morphology Comment Not Reportable RBC Morphology Not Reportable Dimorphic RBCs Not Reportable Polychromasia Not Reportable Hypochromasia Not Reportable Poikilocytosis Not Reportable Anisocytosis 1+ Microcytosis Not Reportable Macrocytosis Not Reportable Spherocytes Not Reportable Pappenheimer Bodies Not Reportable Sickle Cells Not Reportable Target Cells Not Reportable Tear Drop Cells Not Reportable Ovalocytes 2+ Helmet Cells Few [place] Bodies Not Reportable [place] Rings Not Reportable [place] Cells Rare Bite Cells Rare Crenated Cell Not Reportable Elliptocytes Few Acanthocytes (Spur) Not Reportable Rouleaux Not Reportable Hemoglobin C Crystals Not Reportable Schistocytes Not Reportable Malaria parasites Not Reportable Farhan Bodies Not Reportable Hem Pathologist Commnt No PT INR APTT D-Dimer POC ABG pH POC ABG pCO2 POC ABG pO2 POC ABG HCO3 POC ABG Total CO2 POC ABG O2 Sat POC ABG Base Excess FiO2 Sodium Potassium Chloride Carbon Dioxide Anion Gap BUN Creatinine Estimated GFR BUN/Creatinine Ratio Glucose POC Glucose Hemoglobin A1c Calcium Magnesium Troponin T Crossmatch See Detail 04/20/17 04/20/17 04/20/17 13:21 16:40 18:13 WBC RBC Hgb Hct MCV MCH MCHC RDW Plt Count Lymph % (Auto) Lymph # Add Manual Diff Total Counted Seg Neutrophils % Seg Neuts % (Manual) Band Neutrophils % Lymphocytes % (Manual) Reactive Lymphs % (Man) Monocytes % (Manual) Eosinophils % (Manual) Basophils % (Manual) Metamyelocytes % Myelocytes % Promyelocytes % Blast Cells % Nucleated RBC % Seg Neutrophils # Man Band Neutrophils # Lymphocytes # (Manual) Abs React Lymphs (Man) Monocytes # (Manual) Eosinophils # (Manual) Basophils # (Manual) Metamyelocytes # Myelocytes # Promyelocytes # Blast Cells # Pathologist Review WBC Morphology Hypersegmented Neuts Hyposegmented Neuts Hypogranular Neuts Smudge Cells Toxic Granulation Toxic Vacuolation Dohle Bodies Pelger-Huet Anomaly Ivan Rods Platelet Estimate Clumped Platelets Plt Clumps, EDTA Large Platelets Giant Platelets Platelet Satelliting Plt Morphology Comment RBC Morphology Dimorphic RBCs Polychromasia Hypochromasia Poikilocytosis Anisocytosis Microcytosis Macrocytosis Spherocytes Pappenheimer Bodies Sickle Cells Target Cells Tear Drop Cells Ovalocytes Helmet Cells [place] Bodies [place] Rings Raquel Cells Bite Cells Crenated Cell Elliptocytes Acanthocytes (Spur) Rouleaux Hemoglobin C Crystals Schistocytes Malaria parasites Farhan Bodies Hem Pathologist Commnt PT INR APTT D-Dimer POC ABG pH 7.294 L POC ABG pCO2 45.0 POC ABG pO2 85 POC ABG HCO3 21.8 POC ABG Total CO2 23 POC ABG O2 Sat 95 POC ABG Base Excess -5 FiO2 60 Sodium Potassium Chloride Carbon Dioxide Anion Gap BUN Creatinine Estimated GFR BUN/Creatinine Ratio Glucose POC Glucose 202 H 218 H Hemoglobin A1c Calcium Magnesium Troponin T Crossmatch 04/20/17 04/21/17 04/21/17 21:23 05:36 05:36 WBC 68.7 H* RBC 2.30 L Hgb 7.4 L Hct 23.7 L MCV 103 H MCH 32 MCHC 31 L RDW 17.5 H Plt Count 17 L* Lymph % (Auto) Fan Installer Lymph # Fan Installer Add Manual Diff Complete Total Counted 100 Seg Neutrophils % Fan Installer Seg Neuts % (Manual) 3.0 L Band Neutrophils % 0 Lymphocytes % (Manual) 90.0 H Reactive Lymphs % (Man) 0 Monocytes % (Manual) 1.0 Eosinophils % (Manual) 0 Basophils % (Manual) 0 Metamyelocytes % 0 Myelocytes % 0 Promyelocytes % 0 Blast Cells % 6.0 Nucleated RBC % 2.0 H Seg Neutrophils # Man 2.1 Band Neutrophils # 0.0 Lymphocytes # (Manual) 61.8 H Abs React Lymphs (Man) 0.0 Monocytes # (Manual) 0.7 Eosinophils # (Manual) 0.0 Basophils # (Manual) 0.0 Metamyelocytes # 0.0 Myelocytes # 0.0 Promyelocytes # 0.0 Blast Cells # 0.2 Pathologist Review WBC Morphology Not Reportable Hypersegmented Neuts Not Reportable Hyposegmented Neuts Not Reportable Hypogranular Neuts Not Reportable Smudge Cells Not Reportable Toxic Granulation Not Reportable Toxic Vacuolation Not Reportable Dohle Bodies Not Reportable Pelger-Huet Anomaly Not Reportable Ivan Rods Not Reportable Platelet Estimate Consistent w auto Clumped Platelets Not Reportable Plt Clumps, EDTA Not Reportable Large Platelets Not Reportable Giant Platelets Not Reportable Platelet Satelliting Not Reportable Plt Morphology Comment Not Reportable RBC Morphology Not Reportable Dimorphic RBCs Not Reportable Polychromasia Not Reportable Hypochromasia Not Reportable Poikilocytosis Not Reportable Anisocytosis 1+ Microcytosis Not Reportable Macrocytosis Not Reportable Spherocytes Not Reportable Pappenheimer Bodies Not Reportable Sickle Cells Not Reportable Target Cells Not Reportable Tear Drop Cells Not Reportable Ovalocytes Not Reportable Helmet Cells Not Reportable [place] Bodies Not Reportable [place] Rings Not Reportable Raquel Cells Not Reportable Bite Cells Not Reportable Crenated Cell Not Reportable Elliptocytes Not Reportable Acanthocytes (Spur) Not Reportable Rouleaux Not Reportable Hemoglobin C Crystals Not Reportable Schistocytes Rare Malaria parasites Not Reportable Farhan Bodies Not Reportable Hem Pathologist Commnt No PT INR APTT D-Dimer POC ABG pH POC ABG pCO2 POC ABG pO2 POC ABG HCO3 POC ABG Total CO2 POC ABG O2 Sat POC ABG Base Excess FiO2 Sodium Potassium Chloride Carbon Dioxide Anion Gap BUN Creatinine Estimated GFR BUN/Creatinine Ratio Glucose POC Glucose 168 H Hemoglobin A1c 5.5 Calcium Magnesium Troponin T Crossmatch 04/21/17 04/21/17 04/21/17 05:36 05:36 06:48 WBC RBC Hgb Hct MCV MCH MCHC RDW Plt Count Lymph % (Auto) Lymph # Add Manual Diff Total Counted Seg Neutrophils % Seg Neuts % (Manual) Band Neutrophils % Lymphocytes % (Manual) Reactive Lymphs % (Man) Monocytes % (Manual) Eosinophils % (Manual) Basophils % (Manual) Metamyelocytes % Myelocytes % Promyelocytes % Blast Cells % Nucleated RBC % Seg Neutrophils # Man Band Neutrophils # Lymphocytes # (Manual) Abs React Lymphs (Man) Monocytes # (Manual) Eosinophils # (Manual) Basophils # (Manual) Metamyelocytes # Myelocytes # Promyelocytes # Blast Cells # Pathologist Review WBC Morphology Hypersegmented Neuts Hyposegmented Neuts Hypogranular Neuts Smudge Cells Toxic Granulation Toxic Vacuolation Dohle Bodies Pelger-Huet Anomaly Ivan Rods Platelet Estimate Clumped Platelets Plt Clumps, EDTA Large Platelets Giant Platelets Platelet Satelliting Plt Morphology Comment RBC Morphology Dimorphic RBCs Polychromasia Hypochromasia Poikilocytosis Anisocytosis Microcytosis Macrocytosis Spherocytes Pappenheimer Bodies Sickle Cells Target Cells Tear Drop Cells Ovalocytes Helmet Cells [place]quendo-Pecos Bodies [place] Rings Raquel Cells Bite Cells Crenated Cell Elliptocytes Acanthocytes (Spur) Rouleaux Hemoglobin C Crystals Schistocytes Malaria parasites Farhan Bodies Hem Pathologist Commnt PT 21.8 H INR 1.79 H APTT 42.2 H D-Dimer > 92335 H POC ABG pH POC ABG pCO2 POC ABG pO2 POC ABG HCO3 POC ABG Total CO2 POC ABG O2 Sat POC ABG Base Excess FiO2 Sodium 144 Potassium 6.2 H* D Chloride 107.6 H Carbon Dioxide 21 L Anion Gap 22 BUN 62 H Creatinine 2.7 H D Estimated GFR 23 BUN/Creatinine Ratio 23 Glucose 143 H POC Glucose Hemoglobin A1c Calcium 7.3 L Magnesium 2.80 H Troponin T 3.620 H* D Crossmatch 04/21/17 06:48 WBC 72.3 H* RBC 2.26 L Hgb 7.4 L Hct 23.1 L MCV 102 H MCH 33 H MCHC 32 RDW 17.4 H Plt Count 17 L* Lymph % (Auto) Lymph # Add Manual Diff Total Counted Seg Neutrophils % Seg Neuts % (Manual) Band Neutrophils % Lymphocytes % (Manual) Reactive Lymphs % (Man) Monocytes % (Manual) Eosinophils % (Manual) Basophils % (Manual) Metamyelocytes % Myelocytes % Promyelocytes % Blast Cells % Nucleated RBC % Seg Neutrophils # Man Band Neutrophils # Lymphocytes # (Manual) Abs React Lymphs (Man) Monocytes # (Manual) Eosinophils # (Manual) Basophils # (Manual) Metamyelocytes # Myelocytes # Promyelocytes # Blast Cells # Pathologist Review WBC Morphology Hypersegmented Neuts Hyposegmented Neuts Hypogranular Neuts Smudge Cells Toxic Granulation Toxic Vacuolation Dohle Bodies Pelger-Huet Anomaly Ivan Rods Platelet Estimate Clumped Platelets Plt Clumps, EDTA Large Platelets Giant Platelets Platelet Satelliting Plt Morphology Comment RBC Morphology Dimorphic RBCs Polychromasia Hypochromasia Poikilocytosis Anisocytosis Microcytosis Macrocytosis Spherocytes Pappenheimer Bodies Sickle Cells Target Cells Tear Drop Cells Ovalocytes Helmet Cells [place]quendo-Pecos Bodies Mur[place] In[place] Rings Raquel Cells Bite Cells Crenated Cell Elliptocytes Acanthocytes (Spur) Rouleaux Hemoglobin C Crystals Schistocytes Malaria parasites Farhan Bodies Hem Pathologist Commnt PT INR APTT D-Dimer POC ABG pH POC ABG pCO2 POC ABG pO2 POC ABG HCO3 POC ABG Total CO2 POC ABG O2 Sat POC ABG Base Excess FiO2 Sodium Potassium Chloride Carbon Dioxide Anion Gap BUN Creatinine Estimated GFR BUN/Creatinine Ratio Glucose POC Glucose Hemoglobin A1c Calcium Magnesium Troponin T Crossmatch
[2017-04-21] MEDS: NORVASC PO SCH (10:00)
[2017-04-21] MEDS ORDERED: NACL 0.9% 1000 ML 1,000 ML IV ONE (10:30)
[2017-04-21] MEDS ORDERED: MORPHINE IV PRN (12:30)
[2017-04-21] MEDS ORDERED: NACL 0.9% 1000 ML 1,000 ML IV SCH (13:00)
--- NOTE | 2017-04-21 13:12 | Discharge Summary ---
Providers - Providers Date of Admission: 04/19/17 19:24 Date of discharge: 04/21/17 Attending physician: MIKAEL DAUGHERTY 04/19/17 18:22 Consult to Physician [CONS] Urgent Consulting Provider: HANNAH BASSETT Reason For Exam: lymphoproliferative disorder? Notified:: yes Primary care physician: KORINA RIVER Hospitalization Condition: Stable Disposition: [facility] ([facility]) Time spent for discharge: 33 min Core Measure Documentation - Palliative Care Palliative Care/ Comfort Measures: Hospice Care - Core Measures Any of the following diagnoses?: none Exam - Constitutional Vitals: Temp Pulse Resp BP Pulse Ox 99.0 F 90 34 H 82/39 97 04/21/17 04:53 04/21/17 12:00 04/21/17 12:00 04/21/17 04:53 04/21/17 12:00 General appearance: Present: severe distress, well-nourished, other ( unresponsive) - EENT Eyes: Present: PERRL, EOM intact - Neck Neck: Present: supple - Respiratory Respiratory effort: normal Respiratory: bilateral: diminished, negative: rales, rhonchi, wheezing - Cardiovascular Rhythm: regular Heart Sounds: Present: S1 & S2 - Extremities Extremities: no ischemia, No edema - Abdominal General gastrointestinal: Present: soft, non-tender, non-distended, normal bowel sounds Plan Additional Instructions: Management per medical director/head team physician Follow up with: KORINA RIVER MD [Primary Care Provider] - 3-5 Days
[2017-04-21 14:13] VITALS: BP 119/73
--- NOTE | 2017-04-21 16:24 | Death Summary ---
Summary - Providers Date of service: 04/21/17 Consults: 04/19/17 18:22 Consult to Physician [CONS] Urgent Consulting Provider: HANNAH BASSETT Reason For Exam: lymphoproliferative disorder? Notified:: yes Attending: MIKAEL DAUGHERTY - summary Date of admission: 04/19/17 19:24 Date of : 04/21/17 (at 15:49 hrs) Reason for admission: generalized weakness/syncope Significant findings: 76-year-old male patient was admitted through emergency room with syncopal episode , patient had history of renal cell carcinoma status post left nephrectomy many years ago patient was evaluated and initial workup was consistent with myeloproliferative disorder patient was evaluated by hematology oncologist and work up was initiated, Patient had acute leukemia, acute respiratory failure, and thrombocytopenia, patient was being managed symptomatically, However patient deteriorated quickly, and quickly developed acute respiratory failure secondary to hypoxia, hypotension, and acute leukemia , crit WBC of 70 K , severe anemia and severe thrombocytopenia. Patient became tachycardic and planning to transfer the patient to ICU on pressors with possible intubation and mechanical ventilation Patient's poor prognosis and critical condition was discussed with the family members at the bedside. Patient's sister who was his case firearms instructor requested DO NOT RESUSCITATE status after discussing the patient's family members and comfort care only measures, Family also requested hospice evaluation, and possible home hospice However waiting to be evaluated by hospice, patient went into cardiorespiratory arrest, patient was DO NOT RESUSCITATE status, and patient on 2016 at 1549 hrs. Patient's family members at the bedside Please refer to medical records for all the details I spent 45 minutes of critical care time Final diagnosis; --Acute hypoxic respiratory failure --Acute leukemia/leukocytosis 72K --Severe thrombocytopenia --Shock/hypotension probably hypovolemic --Possible sepsis --Hyperkalemia --Acute renal failure --Elevated troponins --Elevated d-dimer s --Coagulopathy --Anemia Pertinent studies: Head CT Chest x-ray Pelvic extremity VQ scan Echocardiogram Carotid Doppler Disposition: : 04/21/17 at 15:49 hrs
[2017-04-26 13:23] LABS: CYTOMETRY FIRST MARKER SCANNED INTO MED REC; FLOW CYTOMETRY >16 SCANNED INTO MED REC
--- NOTE | 2017-05-02 13:36 | Vascular Lab Report ---
CAROTID DUPLEX STUDY: RIGHT PSVEDV CCA [id number] CCA [id number] ICA [id number] ICA [id number] ICA [id number] ECA: [id number] VERT: 31 8 LEFT PSVEDV CCA [id number] CCA [id number] ICA [id number] ICA [id number] ICA [id number] ECA: [id number] VERT: 66 12 REASON FOR EXAM: Syncope. COMMENTS ON THE RIGHT: Doppler frequency analysis is consistent with 16 to 49 percent diameter reduction of the internal carotid artery. Scattered plaque is seen throughout. The common carotid artery is patent. The external carotid artery is patent. The vertebral artery has antegrade flow. COMMENTS ON THE LEFT: Doppler frequency analysis is consistent with 16 to 49 percent diameter reduction of the internal carotid artery. Scattered plaque is seen throughout. The common carotid artery is patent. The external carotid artery is patent. The vertebral artery has antegrade flow. IMPRESSION: Less than 50% diameter reduction in the internal carotid arteries bilaterally. Scattered plaque is seen in both internal carotid arteries.
== END 2017-04-21 21:00 | DRG 871 ==
LOC: ED 13:32 → 4A 19:24
PROVIDERS: ADMIT Internal Medicine; ATTEND Internal Medicine
PROC: 30233R1 Transfusion of Nonautologous Platelets into Peripheral Vein, Percutaneous Approach (ICD-10-PCS; 2017-04-19)
PROC: 5A09357 Assistance with Respiratory Ventilation, Less than 24 Consecutive Hours, Continuous Positive Airway Pressure (ICD-10-PCS; 2017-04-20)
PROC: 4A033R1 Measurement of Arterial Saturation, Peripheral, Percutaneous Approach (ICD-10-PCS; 2017-04-20)
PROC: 5A09357 Assistance with Respiratory Ventilation, Less than 24 Consecutive Hours, Continuous Positive Airway Pressure (ICD-10-PCS; principal; 2017-04-21)
DX: A41.9 Sepsis, unspecified organism (principal); G93.41 Metabolic encephalopathy; J96.01 Acute respiratory failure with hypoxia; I42.9 Cardiomyopathy, unspecified; D47.9 Neoplasm of uncertain behavior of lymphoid, hematopoietic and related tissue, unspecified; C95.00 Acute leukemia of unspecified cell type not having achieved remission; N17.9 Acute kidney failure, unspecified; G90.8 Other disorders of autonomic nervous system; D69.6 Thrombocytopenia, unspecified; I25.10 Atherosclerotic heart disease of native coronary artery without angina pectoris; E11.9 Type 2 diabetes mellitus without complications; I11.0 Hypertensive heart disease with heart failure; I50.9 Heart failure, unspecified; D64.9 Anemia, unspecified; D70.9 Neutropenia, unspecified; R55 Syncope and collapse; E87.5 Hyperkalemia; Z66 Do not resuscitate; Z86.73 Personal history of transient ischemic attack (TIA), and cerebral infarction without residual deficits; Z90.5 Acquired absence of kidney; Z87.891 Personal history of nicotine dependence; R57.1 Hypovolemic shock
CPT/HCPCS: 36415; 36430; 36600; 70450; 71010; 72170; 78582; 80048; 80061; 80074; 81001; 82140; 82550; 82553; 82803; 82962; 83036; 83735; 83880; 84484; 85007; 85025; 85027; 85379; 85384; 85610; 85670; 85730; 86850; 86900; 86901; 86920; 87040; 87086; 88184; 88185; 93005; 93010; 93306; 93880; 94660; 94760; 96365; 96367; 96375; A9540; A9558; J1940; J2543; J3370; J7030; J7040